=== PATIENT | female | born 1950 | race Caucasian/White ===

== ENCOUNTER 2023-09-03 16:00 | Emergency (ER) | payer BC, MEDICAID, MEDICARE ==
[~2023-09-03] VITALS: Ht 162.6 cm; Wt 54.1 kg
[~2023-09-03 16:00] MED LIST: AMLO2.5T2 PO; ASPI-611 PO; ATOR20TA PO; CHOL100044 PO; CLOP75TA15 PO; HYDR-4353 PO; RAMI5CAP65 PO; VITA1CAP PO
[2023-09-03 17:57] VITALS: TEMP 98.7
[2023-09-03 19:02] LABS: BASOPHILS # (AUTO) 0.1 X10'3 (0-0.2); BASOPHILS % (AUTO) 0.8 % (0-1); EOSINOPHILS # (AUTO) 0.2 X10'3 (0-0.9); EOSINOPHILS % (AUTO) 1.9 % (0-6); HEMATOCRIT 28.6 % (35.0-45.0); HEMOGLOBIN 9.4 g/dl (12.0-16.0); LYMPHOCYTES # (AUTO) 1.8 X10'3 (1.1-4.8); LYMPHOCYTES % (AUTO) 16.5 % (21-51); MEAN CORPUSCULAR HGB CONC 32.9 g/dL (33.0-36.5); MEAN CORPUSCULAR VOLUME 82.2 FL (78-98); MEAN PLATELET VOLUME 7.4 FL (7.4-10.4); MONOCYTES # (AUTO) 0.8 X10'3 (0-0.9); MONOCYTES % (AUTO) 6.8 % (2-12); NEUTROPHILS # (AUTO) 8.3 X10'3 (1.8-7.7); PLATELET COUNT 506 X10'3 (140-440); RED BLOOD COUNT 3.48 X10'6 (4.20-5.60); RED CELL DISTRIBUTION WIDTH 16.5 % (11.5-14.5); WHITE BLOOD COUNT 11.2 X10'3 (4.5-11.0)
[2023-09-03 19:07] LABS: BILIRUBIN,URINE NEGATIVE (Neg); CLARITY,URINE CLOUDY (Clear); COLOR,URINE YELLOW (Yellow); GLUCOSE, URINE NEGATIVE (Neg); KETONES,URINE NEGATIVE (Neg); LEUKOCYTE ESTERASE ,URINE MODERATE (Neg); NITRITES, URINE NEGATIVE (Neg); OCCULT BLOOD,URINE TRACE-INTACT (Neg); PROTEIN,URINE NEGATIVE (Neg); UROBILINOGEN,URINE 0.2 E.U/dL (0.2-1.0)
[2023-09-03 19:11] LABS: PROTHROMBIN TIME 10.9 SECONDS (9.0-12.0)
[2023-09-03 19:20] LABS: APTT 29 SECONDS (22-32)
[2023-09-03 19:30] LABS: ALANINE AMINOTRANSFERASE 17 U/L (12-78); ALBUMIN 2.7 G/DL (3.4-5.0); ALBUMIN/GLOBULIN RATIO 0.5 (1.1-1.5); ALKALINE PHOSPHATASE 127 IU/L (46-116); ANION GAP 7 (8-16); ASPARTATE AMINO TRANSFERASE 25 U/L (10-37); BILIRUBIN,TOTAL 0.3 MG/DL (0.1-1.0); BLOOD UREA NITROGEN 24 MG/DL (7-18); BUN/CREATININE RATIO 15.2 (10.0-20.0); CHLORIDE 100 MMOL/L (99-107); CREATININE 1.58 MG/DL (0.40-0.90); GLUCOSE 101 MG/DL (70-104); MAGNESIUM 2.5 MG/DL (1.5-2.4); POTASSIUM 3.4 MMOL/L (3.5-5.1); PRO BRAIN NATRIURETIC PEPTIDE 1911 PG/ML (0-125); SODIUM 134 MMOL/L (135-145); TOTAL CARBON DIOXIDE 27.1 MMOL/L (24-32); TOTAL PROTEIN 7.8 G/DL (6.4-8.2); eGFR 32 ML/MIN
[2023-09-03 19:31] LABS: UA COLLECTION TYPE CLN CATCH MIDSTREAM
[2023-09-03 19:33] LABS: CALCIUM 12.4 MG/DL (8.5-10.1)
[2023-09-03 19:35] LABS: SQUAMOUS EPITHELIAL CELL,UR MANY /LPF (FEW); TRANSITIONAL EPI CELLS,URINE MODERATE /HPF; WBC,URINE 20-30 /HPF (0-4)
[2023-09-03 19:45] LABS: AMORPHOUS PHOSPHATES 4+
[2023-09-03 19:46] LABS: BACTERIA,URINE 2+ /HPF (Neg)
[2023-09-03 19:48] LABS: HYALINE CASTS 0-3 /LPF (NEGATIVE); MUCUS STRANDS FEW /LPF (Neg)
[2023-09-03] MEDS: CefTRIAXone/D5W-Rocephin 1gm 50 ML IV ONE (23:34)
[2023-09-03] MEDS: normal saline 1000ml 1,000 ML IV ONE (23:34)
[2023-09-04] MEDS: calcitonin,salmon synthetic 200 units/ml inj IM SCH (01:30)
[2023-09-04] MEDS: zoledronic acid/mannitol-water 100 ML IV ONE (02:26)
[2023-09-04] MEDS: normal saline 1000ml 1,000 ML IV ONE ×2 (06:00→11:26)
[2023-09-04] MEDS ORDERED: TRAM50TA2 PO (10:50)
[2023-09-04] MEDS ORDERED: ALBU18HF2 INH (10:50)
[2023-09-04] MEDS ORDERED: CYCL-1 PO (10:50)
[2023-09-04] MEDS ORDERED: ATOR20TA66 PO (10:50)
[2023-09-04] MEDS ORDERED: cyclobenzaprine 10mg tablet PO ONE (13:30)
[2023-09-04] MEDS ORDERED: amLODIPine 5mg tablet PO ONE (13:30)
[2023-09-04] MEDS ORDERED: amLODIPine 2.5mg tablet PO ONE (13:35)
[2023-09-04] MEDS: cyclobenzaprine 10mg tablet PO ONE (13:55)
[2023-09-04] MEDS: clopidogrel 75mg tablet PO STA (13:55)
[2023-09-04] MEDS: amLODIPine 5mg tablet PO ONE (13:55)
[2023-09-04] MEDS: atorvastatin 20mg tablet PO STA (13:55)
[2023-09-04] MEDS: lisinopril 5mg tablet PO STA (13:55)
[2023-09-04 19:13] VITALS: BP 129/70; PULSE 70; RESP 18; O2SAT 95
== END 2023-09-04 18:50 ==
LOC: ER 16:01
DX: E83.52 Hypercalcemia (principal); N39.0 Urinary tract infection, site not specified; R91.8 Other nonspecific abnormal finding of lung field; I10 Essential (primary) hypertension; Z86.73 Personal history of transient ischemic attack (TIA), and cerebral infarction without residual deficits; Z85.3 Personal history of malignant neoplasm of breast; Z88.0 Allergy status to penicillin; Z91.041 Radiographic dye allergy status
CPT/HCPCS: 36415; 70450; 71045; 71250; 80053; 81001; 83605; 83735; 83880; 84145; 84484; 85025; 85610; 85730; 87040; 87502; 87503; 96365; 96372; 96375; 99285; J0630; J0696; J3489; J7030; 83970; 96374